=== PATIENT | male | born 1985 | race African-American/Black ===

== ENCOUNTER 2018-09-02 08:51 | Emergency (ER) | payer SELFPAY ==
[2018-09-02 09:57] LABS: Absolute Lymphocytes (CBC) 0.9 K/uL (0.7-4.9); Absolute Monocytes 0.3 K/uL (0.1-1.3); Absolute Neutrophil 3.9 K/uL (1.8-8.0); Basophils % 0.5 % (0-1.3); Eosinophils % 0.7 % (0-4.4); Hematocrit 44.3 % (39.6-49.0); Lymphocytes % 18.2 % (15.3-44.8); MPV 8.7 fL (7.6-11.3); Monocytes % 5.9 % (3.3-12.3)
[2018-09-02] MEDS ORDERED: NA CHLORIDE 0.9% 1,000 ML ONE ×2 (09:58→12:13)
[2018-09-02 10:13] LABS: Albumin 4.3 g/dL (3.4-5.0); Bilirubin Direct 0.1 mg/dL (0-0.2); Bilirubin Total 0.4 mg/dL (0.2-1.0); Potassium 4.1 mmol/L (3.5-5.1)
[2018-09-02 11:41] LABS: Urine Bacteria <20 /HPF (NONE SEEN); Urine Culture Reflex Order NOT NEEDED; Urine Mucus 1+ /HPF (NONE SEEN); Urine RBC >50 /HPF (NONE SEEN)
[2018-09-02 11:42] LABS: Urine Blood 3+ (NEG); Urine Glucose NEGATIVE (NEG); Urine Protein 2+ (NEG)
--- NOTE | 2018-09-02 12:36 | RAD REPORT ---
EXAM DESCRIPTION: US - Renal Ultrasound-Complete - 09/02/2018 12:25 pm CLINICAL HISTORY: hematuria COMPARISON: No comparisons FINDINGS: Both kidneys are normal in size, shape and echotexture. The right kidney measures 10.2 x 5.3 x 5.2 cm. No hydronephrosis, focal mass or perinephric fluid. The left kidney measures 9.5 x 5.4 x 3.9 cm. No hydronephrosis, focal mass or perinephric fluid. The urinary bladder is incompletely distended without gross abnormality seen. IMPRESSION: Unremarkable renal sonogram.
--- NOTE | 2018-09-02 12:44 | RAD REPORT ---
EXAM DESCRIPTION: RAD - Abdomen 1 View (KUB) - 09/02/2018 12:15 pm CLINICAL HISTORY: Abdomen pain. FINDINGS: The bowel gas pattern is unremarkable. A 4 millimeter calcification within the left pelvis probably represents a distal left ureteral calcul us. Unenhanced CT scan would be helpful for further evaluation
--- NOTE | 2018-09-02 12:55 | ER ---
Nurse's Notes [facility] Name: Richard Calles Age: 33 yrs Sex: Male : 1985 Arrival Date: 09/02/2018 Time: 08:53 Bed 20 Private MD: Diagnosis: Calculus of ureter-Left Presentation: 09/02 09:00 Presenting complaint: Patient states: pt reports having left sided flank pain, blood in sg urination, reports hx of kidney stones, but never had urinated blood before. Transition of care: patient was not received from another setting of care. Onset of symptoms was September 02, 2018. Risk Assessment: Do you want to hurt yourself or someone else? Patient reports no desire to harm self or others. Initial Sepsis Screen: Does the patient meet any 2 criteria? No. Patient's initial sepsis screen is negative. Does the patient have a suspected source of infection? No. Patient's initial sepsis screen is negative. Care prior to arrival: None. 09:00 Method Of Arrival: Ambulatory sg 09:00 Acuity: LIVE 3 sg Historical: - Allergies: 09:02 No Known Allergies; sg - PMHx: 09:02 Kidney stones; sg - PSHx: 09:02 Appendectomy; wrist; sg - Immunization history:: Adult Immunizations up to date. - Social history:: Smoking status: Patient/guardian denies using tobacco. - Ebola Screening: : Patient negative for fever greater than or equal to 101.5 degrees Fahrenheit, and additional compatible Ebola Virus Disease symptoms Patient denies exposure to infectious person Patient denies travel to an Ebola-affected area in the 21 days before illness onset No symptoms or risks identified at this time. Screenin:09 Abuse screen: Denies threats or abuse. Nutritional screening: No deficits noted. tw2 Tuberculosis screening: No symptoms or risk factors identified. Fall Risk None identified. Assessment: 09:27 Reassessment: provider at bedside at this time. tw2 09:52 General: Appears in no apparent distress. Behavior is calm, cooperative, appropriate tw2 for age. Pain: Denies pain. Pain:. Neuro: Level of Consciousness is awake, alert, obeys commands. Cardiovascular: Heart tones S1 S2 Patient's skin is warm and dry. Respiratory: Airway is patent Respiratory effort is even, unlabored, Respiratory pattern is regular, symmetrical, Breath sounds are clear bilaterally. GI: No signs and/or symptoms were reported involving the gastrointestinal system. Abdomen is flat, Bowel sounds present X 4 quads. Abd is soft X 4 quads. : Reports blood in urine. : No signs and/or symptoms were reported regarding the genitourinary system. EENT: No signs and/or symptoms were reported regarding the EENT system. Derm: No signs and/or symptoms reported regarding the dermatologic system. Musculoskeletal: Range of motion:. 10:01 Reassessment: Patient appears in no apparent distress at this time. No changes from tw2 previously documented assessment. Patient and/or family updated on plan of care and expected duration. Pain level reassessed. Patient is alert, oriented x 3, equal unlabored respirations, skin warm/dry/pink. 10:44 Reassessment: Patient appears in no apparent distress at this time. No changes from tw2 previously documented assessment. Patient and/or family updated on plan of care and expected duration. Pain level reassessed. Patient is alert, oriented x 3, equal unlabored respirations, skin warm/dry/pink. 11:58 Reassessment: Patient appears in no apparent distress at this time. No changes from tw2 previously documented assessment. Patient and/or family updated on plan of care and expected duration. Pain level reassessed. Patient is alert, oriented x 3, equal unlabored respirations, skin warm/dry/pink. 13:06 Reassessment: Patient appears in no apparent distress at this time. No changes from tw2 previously documented assessment. Patient and/or family updated on plan of care and expected duration. Pain level reassessed. Patient is alert, oriented x 3, equal unlabored respirations, skin warm/dry/pink. Vital Signs: 09:00 Temp 98.4; sg 09:02 BP 113 / 86; Pulse 81; Resp 18; Temp 98.4; Pulse Ox 100% on R/A; Weight 77.11 kg; Pain sg 7/10; 10:01 BP 120 / 74; Pulse 76; Resp 17; Pulse Ox 100% on R/A; tw2 10:44 BP 114 / 80; Pulse 65; Resp 17; Pulse Ox 100% on R/A; tw2 11:57 BP 118 / 77; Pulse 63; Resp 17; Pulse Ox 100% on R/A; tw2 13:06 BP 129 / 84; Pulse 66; Resp 17; Pulse Ox 97% on R/A; tw2 ED Course: 08:53 Patient arrived in ED. as 09:01 Triage completed. sg 09:02 Arm band placed on. sg 09:09 Scott Medrano PA is PHCP. cp 09:09 Aravind Garcia MD is Attending Physician. cp 09:09 Nayely Comer, YOON is Primary Nurse. tw2 09:09 Bed in low position. Call light in reach. Pulse ox on. NIBP on. tw2 09:45 Inserted saline lock: 22 gauge in left antecubital area, using aseptic technique. Blood tw2 collected. 11:26 Urine Microscopic Only Sent. tw2 12:16 X-ray completed. Portable x-ray completed in exam room. Patient tolerated procedure mh1 well. 12:16 XRAY Abdomen 1 View (KUB) In Process Unspecified. EDMS 12:23 US Rp Exam Complete In Process Unspecified. EDMS 12:53 Bobby Beck MD is Referral Physician. cp 13:06 No provider procedures requiring assistance completed. IV discontinued, intact, tw2 bleeding controlled, No redness/swelling at site. Pressure dressing applied. Administered Medications: 09:52 Drug: NS 0.9% 1000 ml Route: IV; Rate: 1000 ml; Site: left antecubital; tw2 11:10 Follow up: Response: No adverse reaction; IV Status: Completed infusion; IV Intake: tw2 1000ml 12:04 Drug: NS 0.9% 1000 ml Route: IV; Rate: 1000 ml; Site: left antecubital; tw2 13:05 Follow up: Response: No adverse reaction; IV Status: Order to discontinue infusion; IV tw2 Intake: 200ml 13:00 Drug: Flomax 0.4 mg Route: PO; tw2 13:05 Follow up: Response: No adverse reaction tw2 Intake: 11:10 IV: 1000ml; Total: 1000ml. tw2 13:05 IV: 200ml; Total: 1200ml. tw2 Outcome: 12:54 Discharge ordered by . cp 13:07 Discharged to home ambulatory. tw2 13:07 Condition: stable 13:07 Discharge instructions given to patient, Instructed on discharge instructions, follow up and referral plans. no drinking with medication, no driving heavy equipment, medication usage, Demonstrated understanding of instructions, follow-up care, medications, Prescriptions given X 4. 13:08 Patient left the ED. tw2 Signatures: Dispatcher [employer] EDMS Samuel Gan, RN RN Rakel Gilmore [facility] Shruthi Jose Corey, PA PA cp Wise, Tara RN RN tw2
--- NOTE | 2018-09-02 12:56 | EDPHYS ---
Physician Documentation [facility] Name: Richard Calles Age: 33 yrs Sex: Male : 1985 Arrival Date: 09/02/2018 Time: 08:53 Bed 20 Private MD: ED Physician Aravind Garcia HPI: 09/02 09:45 This 33 yrs old Black Male presents to ER via Ambulatory with complaints of Possible cp Kidney Stone. 09:45 The patient presents with urinary symptoms, hematuria, penile pain. cp 09:45 Onset: The symptoms/episode began/occurred this morning. Associated signs and symptoms: cp Pertinent negatives: abdominal pain, constipation, diarrhea, fever, vomiting. 09:45 Patient reports having left flank pain that has resolved after taking diclofenac this cp morning. Patient concerned about kidney stone after noticing blood in urine. Patient reports now having pain in penis. Historical: - Allergies: 09:02 No Known Allergies; sg - PMHx: 09:02 Kidney stones; sg - PSHx: 09:02 Appendectomy; wrist; sg - Immunization history:: Adult Immunizations up to date. - Social history:: Smoking status: Patient/guardian denies using tobacco. - Ebola Screening: : Patient negative for fever greater than or equal to 101.5 degrees Fahrenheit, and additional compatible Ebola Virus Disease symptoms Patient denies exposure to infectious person Patient denies travel to an Ebola-affected area in the 21 days before illness onset No symptoms or risks identified at this time. ROS: 10:00 Constitutional: Negative for body aches, chills, fever, poor PO intake. cp 10:00 Eyes: Negative for injury, pain, redness, and discharge. cp 10:00 ENT: Negative for drainage from ear(s), ear pain, sore throat, difficulty swallowing, difficulty handling secretions. 10:00 Cardiovascular: Negative for chest pain, palpitations. 10:00 Respiratory: Negative for cough, shortness of breath, wheezing. 10:00 Abdomen/GI: Negative for abdominal pain, nausea, vomiting, and diarrhea. 10:00 Back: Negative for pain at rest, pain with movement. 10:00 : Positive for hematuria, penile pain, Negative for burning with urination, penile discharge, testicular pain 10:00 Skin: Negative for cellulitis, rash. 10:00 Neuro: Negative for altered mental status, headache, weakness. 10:00 All other systems are negative. Exam: 10:05 Constitutional: The patient appears in no acute distress, alert, awake, comfortable, cp non-toxic, well developed, well nourished. 10:05 Head/Face: Normocephalic, atraumatic. cp 10:05 Eyes: Periorbital structures: appear normal, Conjunctiva: normal, no exudate, no injection, Sclera: no appreciated abnormality, Lids and lashes: appear normal, bilaterally. 10:05 ENT: External ear(s): are unremarkable, Nose: is normal, Mouth: Lips: moist, Oral mucosa: pink and intact, moist, Posterior pharynx: is normal, airway is patent, no erythema, no exudate. 10:05 Chest/axilla: Inspection: normal, Palpation: is normal, no crepitus, no tenderness. 10:05 Cardiovascular: Rate: normal, Rhythm: regular. 10:05 Respiratory: the patient does not display signs of respiratory distress, Respirations: normal, no use of accessory muscles, no retractions, no splinting, no tachypnea, Breath sounds: are clear throughout, no decreased breath sounds, no stridor, no wheezing. 10:05 Abdomen/GI: Inspection: abdomen appears normal, Bowel sounds: active, all quadrants, Palpation: abdomen is soft and non-tender, in all quadrants. 10:05 Back: pain, is absent, ROM is normal. 10:05 Skin: cellulitis, is not appreciated, no rash present. Vital Signs: 09:00 Temp 98.4; sg 09:02 BP 113 / 86; Pulse 81; Resp 18; Temp 98.4; Pulse Ox 100% on R/A; Weight 77.11 kg; Pain sg 7/10; 10:01 BP 120 / 74; Pulse 76; Resp 17; Pulse Ox 100% on R/A; tw2 10:44 BP 114 / 80; Pulse 65; Resp 17; Pulse Ox 100% on R/A; tw2 11:57 BP 118 / 77; Pulse 63; Resp 17; Pulse Ox 100% on R/A; tw2 13:06 BP 129 / 84; Pulse 66; Resp 17; Pulse Ox 97% on R/A; tw2 MDM: 09:09 Patient medically screened. cp 12:52 Data reviewed: vital signs, nurses notes, lab test result(s), radiologic studies, and cp as a result, I will discharge patient. 12:52 Counseling: I had a detailed discussion with the patient and/or guardian regarding: the cp historical points, exam findings, and any diagnostic results supporting the discharge/admit diagnosis, lab results, radiology results, to return to the emergency department if symptoms worsen or persist or if there are any questions or concerns that arise at home. 09/02 09:35 Order name: Basic Metabolic Panel; Complete Time: 10:31 cp 09/02 09:35 Order name: CBC with Diff; Complete Time: 10:31 cp 09/02 09:35 Order name: Creatinine for Radiology; Complete Time: 10:31 cp 09/02 09:35 Order name: Hepatic Function; Complete Time: 10: cp 09/02 09:35 Order name: Lipase; Complete Time: 10:31 cp 09/02 09:35 Order name: Urine Microscopic Only; Complete Time: 11:43 cp 09/02 11:43 Interpretation: Normal except: URBC >50. cp 09/02 09:35 Order name: IV Saline Lock; Complete Time: 09:52 cp 09/02 09:35 Order name: Labs collected and sent; Complete Time: 09:52 cp 09/02 11:29 Order name: Urine Dipstick--Ancillary (enter results); Complete Time: 11:43 bd 09/02 11:43 Interpretation: Normal except: UKET 1+; UBLD 3+; UPROT 2+. cp 09/02 11:31 Order name: US Rp Exam Complete; Complete Time: 12:47 cp 09/02 11:31 Order name: XRAY Abdomen 1 View (KUB); Complete Time: 12:47 cp 09/02 09:35 Order name: Urine Strainer; Complete Time: 09:54 cp 09/02 11:12 Order name: Urine Dipstick-Ancillary (obtain specimen); Complete Time: 11:26 cp Administered Medications: 09:52 Drug: NS 0.9% 1000 ml Route: IV; Rate: 1000 ml; Site: left antecubital; tw2 11:10 Follow up: Response: No adverse reaction; IV Status: Completed infusion; IV Intake: tw2 1000ml 12:04 Drug: NS 0.9% 1000 ml Route: IV; Rate: 1000 ml; Site: left antecubital; tw2 13:05 Follow up: Response: No adverse reaction; IV Status: Order to discontinue infusion; IV tw2 Intake: 200ml 13:00 Drug: Flomax 0.4 mg Route: PO; tw2 13:05 Follow up: Response: No adverse reaction tw2 Disposition: 09/03 12:37 Co-signature as Attending Physician, Aravind Garcia MD. rn Disposition: 09/02/18 12:54 Discharged to Home. Impression: Calculus of ureter - Left. - Condition is Stable. - Discharge Instructions: Kidney Stones, Renal Colic. - Prescriptions for Tylenol- Codeine #3 300-30 mg Oral Tablet - take 2 tablets by ORAL route every 6 hours As needed; 15 tablet. Zofran 4 mg Oral Tablet - take 1 tablet by ORAL route every 12 hours As needed; 20 tablet. Flomax 0.4 mg Oral Capsule, Sust. Release 24 hr - take 1 capsule by ORAL route once daily for 5 days 1/2 hour following the same meal each day; 5 capsule. Diclofenac Sodium 75 mg Oral Tablet, Delayed Release (E.C.) - take 1 tablet by ORAL route 2 times per day As needed; 20 tablet. - Work release form, Medication Reconciliation Form, Thank You Letter, Antibiotic Education, Prescription Opioid Use form. - Follow up: Bobby Beck MD; When: 2 - 3 days; Reason: pain continues. - Problem is new. - Symptoms have improved. Signatures: Dispatcher [employer] EDSamuel Quezada RN RN sg Nieto, Roman, MD MD rn Page, Corey, PA PA cp Wise, Tara, RN RN tw2 Corrections: (The following items were deleted from the chart) 09/02 13:08 12:54 09/02/2018 12:54 Discharged to Home. Impression: Calculus of ureter - Left. tw2 Condition is Stable. Forms are Medication Reconciliation Form, Thank You Letter, Antibiotic Education, Prescription Opioid Use. Follow up: Bobby Beck; When: 2 - 3 days; Reason: pain continues. Problem is new. Symptoms have improved. cp
[2018-09-02 13:11] VITALS: TEMP 98.4
[2018-09-02] MEDS ORDERED: TAMSULOSIN 0.4 MG SR CAP ONE (13:11)
[2018-09-02 13:18] VITALS: BP 129/84; O2SAT 97
== END 2018-09-02 13:08 | disposition home or self-care (01) ==
LOC: ER 08:51
DX: N20.1 Calculus of ureter (principal)
CPT/HCPCS: 36415; 74018; 76770; 80048; 80076; 81003; 81015; 83690; 85025; 96360; 96361; 99284; J7030

== ENCOUNTER 2024-05-07 03:01 | Emergency (ER) | payer BC ==
[2024-05-07] MEDS ORDERED: ONDANSETRON 4 MG/2 ML VIAL ONE (04:39)
[2024-05-07] MEDS ORDERED: NA CHLORIDE 0.9% 1,000 ML ONE (04:39)
[2024-05-07] MEDS ORDERED: FAMOTIDINE 20 MG/2 ML VIAL IV ONE (04:39)
[2024-05-07] MEDS ORDERED: MORPHINE 4 MG/ML SYR ONE (04:39)
[2024-05-07 04:45] LABS: Absolute Eosinophils 0.1 K/uL (0-0.5); Absolute Lymphocytes (CBC) 1.3 K/uL (0.7-4.9); Absolute Monocytes 0.5 K/uL (0.1-1.3); Basophils % 0.3 % (0-1.3); Eosinophils % 0.9 % (0-4.4); Hematocrit 40.4 % (39.6-49.0); Hemoglobin 13.6 g/dL (13.6-17.9); Lymphocytes % 18.4 % (15.3-44.8); MCH 29.2 pg (27.0-35.0); MCHC 33.7 g/dL (32.0-36.0); MCV 86.8 fL (80-100); MPV 8.1 fL (7.6-11.3); Monocytes % 6.7 % (3.3-12.3); Neutrophils % 73.7 % (41.7-73.7); Nucleated Red Blood Cells % 0.2 % (0-0); Platelets 289 thou/uL (152-406); RBC Red Blood Cell Count 4.65 M/uL (4.33-5.43); Red Cell Distribution Width 13.7 % (12.1-15.2)
[2024-05-07 05:04] LABS: Albumin 2.1 g/dL (3.4-5.0); Albumin/Globulin Ratio 0.4 (1.1-1.8); Anion Gap 9.4 mEq/L (5.0-15.0); Bilirubin Total 0.5 mg/dL (0.2-1.0); Globulin 5.4 g/dL (2.3-3.5); Potassium 3.4 mEq/L (3.5-5.1); Protein, Total 7.5 g/dL (6.4-8.2)
--- NOTE | 2024-05-07 06:39 | RAD REPORT ---
EXAMINATION: CT ABDOMEN PELVIS WITH IV CONTRAST INDICATION: Male, 39 years old, ABD PAIN COMPARISON(S): None. TECHNIQUE: CT acquisition of the abdomen and pelvis following the administration of IV contrast. Larissa nal and sagittal reformatted images provided. This exam was performed according to departmental dose-optimization program which includes automated exposure control, adjustment of the mA and/or kV a ccording to patient size, and/or use of iterative reconstruction technique. FINDINGS: SUPPORT DEVICES: None. LOWER CHEST: Unremarkable. ABDOMEN AND PELVIS: Liver: Incompletely characterized 1.1 cm subcapsular lesion in the left lobe, and punctate hypodensit y in the dome. Gallbladder and bile ducts: Unremarkable. Pancreas: Normal. Spleen: Normal. Adrenal glands: Normal. Kidneys and ureters: Normal. Bladder: Nondistended without evident abnormality. Reproductive organs: Bilateral extratesticular cystic lesions. GI tract: Normal caliber without wall thickening. No evidence of appendicitis. Vessels: Unremarkable. Lymph nodes: No evident adenopathy. Peritoneum: No evidence of ascites, fluid collection, or free air. Abdominal wall: No significant hernia. MUSCULOSKELETAL: No acute osseous abnormality. IMPRESSION: 1. No acute abdominopelvic finding. 2. Extratesticular cystic lesions of the scrotum incompletely characterized by CT, correlate with s ymptoms and consider nonemergent scrotal ultrasound. 3. Indeterminate hepatic hypodensities are low suspicion and likely incidental unless patient has s pecific risk factors for malignancy. Attention on subsequent exams. Electronically signed by: Samuel Plaza MD 05/07/2024 06:29 AM CDT RP Due to temporary technical issues with the PACS/Ambric reporting system, reports are being frank d by the in-house radiologist without review as a courtesy to ensure prompt reporting the interpreting radiologist is fully responsible for the content of the report. Transcribed Date/Time: 05/07/2024 6:39 AM
--- NOTE | 2024-05-07 06:41 | EDPHYS ---
Physician Documentation [facility] Name: Richard Calles Age: 39 yrs Sex: Male : 1985 Arrival Date: 05/07/2024 Time: 03:01 Bed 8 Private MD: ED Physician Sky Farmer HPI: 05/07 05:09 This 39 yrs old Black Male presents to ER via Ambulatory with complaints of Abdominal rt Pain. 05:09 Patient presents to the ED with epigastric pain that woke him up from sleep. This rt occurred about 2 hours prior to arrival. He associated nausea without vomiting. Denies other acute complaints at this time, symptoms are moderate in severity, no other aggravating or alleviating factors.. Historical: - Allergies: 04:52 No Known Drug Allergies; br2 - Immunization history:: Adult Immunizations not up to date. - Infectious Disease History:: Denies. - Social history:: Smoking status: Patient denies any tobacco usage or history of. Patient uses alcohol, occasionally. - Family history:: not pertinent. ROS: 05:09 Constitutional: Negative for fever, chills, and weight loss, Cardiovascular: Negative rt for chest pain, palpitations, and edema, Respiratory: Negative for shortness of breath, cough, wheezing, and pleuritic chest pain, MS/Extremity: Negative for injury and deformity, Skin: Negative for injury, rash, and discoloration, Neuro: Negative for headache, weakness, numbness, tingling, and seizure, 05:09 Abdomen/GI: Positive for abdominal pain, nausea, Exam: 05:09 Constitutional: This is a well developed, well nourished patient who is awake, alert, rt and in no acute distress. Head/Face: Normocephalic, atraumatic. Chest/axilla: Normal chest wall appearance and motion. Nontender with no deformity. No lesions are appreciated. Cardiovascular: Regular rate and rhythm with a normal S1 and S2. No gallops, murmurs, or rubs. Normal PMI, no JVD. No pulse deficits. Respiratory: Lungs have equal breath sounds bilaterally, clear to auscultation and percussion. No rales, rhonchi or wheezes noted. No increased work of breathing, no retractions or nasal flaring. Skin: Warm, dry with normal turgor. Normal color with no rashes, no lesions, and no evidence of cellulitis. MS/ Extremity: Pulses equal, no cyanosis. Neurovascular intact. Full, normal range of motion. Neuro: Awake and alert, GCS 15, oriented to person, place, time, and situation. Cranial nerves II-XII grossly intact. Motor strength 5/5 in all extremities. Sensory grossly intact. Cerebellar exam normal. Normal gait. 05:09 Abdomen/GI: Tenderness to the epigastrium without rebound, guarding, distention, Vital Signs: 04:30 BP 125 / 93; Pulse 71; Resp 18; Temp 98.2(TE); Pulse Ox 99% on R/A; Weight 85.73 kg; br2 Height 5 ft. 10 in. ; Pain 8/10; 05:33 BP 126 / 87; Pulse 69; Resp 18 S; Pulse Ox 100% on R/A; Pain 2/10; br2 06:06 BP 120 / 89; Pulse 60; Resp 16 S; Pulse Ox 99% on R/A; Pain 2/10; br2 04:30 Body Mass Index 27.12 (85.73 kg, 177.8 cm) br2 04:30 Pain Scale: Adult br2 05:33 Pain Scale: Adult br2 06:06 Pain Scale: Adult br2 MDM: 04:08 Patient medically screened. rt 06:50 Differential Diagnosis Gastritis, ulcer, pancreatitis, diverticulitis. Data reviewed: rt vital signs, nurses notes, lab test result(s), radiologic studies. I considered the following discharge prescriptions or medication management in the emergency department Medications were administered in the Emergency Department. See MAR. Independent interpretation of the following test(s) in the Emergency Department CT Scan: My interpretation is No bowel obstruction seen on interpretation of CT scan images. Counseling: I had a detailed discussion with the patient and/or guardian regarding the historical points, exam findings, and any diagnostic results supporting the discharge/admit diagnosis, lab results, radiology results, the need for outpatient follow up, to return to the emergency department if symptoms worsen or persist or if there are any questions or concerns that arise at home. 05/07 04:15 Order name: CBC with Diff; Complete Time: 05:07 rt 05/07 04:15 Order name: CMP; Complete Time: 05: rt 05/07 04:15 Order name: Lipase; Complete Time: 05: rt 05/07 04:15 Order name: CT Abd/Pelvis - IV Contrast Only rt 05/07 04:15 Order name: IV Saline Lock; Complete Time: 04:46 rt 05/07 04:15 Order name: Labs collected and sent; Complete Time: 04:46 rt Administered Medications: 04:45 Drug: NS 0.9% IV 1000 ml IV at 1 bolus Per protocol; 1000 mL bolus Route: IV; Rate: 1 br2 bolus; Site: left forearm; 06:57 Follow up: IV Status: Completed infusion; IV Intake: 1000ml br2 04:45 Drug: Famotidine IVP 20 mg IVP once; dilute with 10 mL 0.9% NaCl; give over 2 minutes br2 Route: IVP; Site: left forearm; 05:48 Follow up: Response: No adverse reaction br2 04:46 Drug: Ondansetron IVP 4 mg IVP once; over 2 minutes Route: IVP; Site: left forearm; br2 05:48 Follow up: Response: No adverse reaction br2 04:46 Drug: morphine IVP or IV 4 mg IVP once over 4 mins Route: IVP; Infused Over: 4 mins; br2 Site: left forearm; 05:48 Follow up: Response: Pain is decreased br2 06:55 Drug: GI Cocktail without - (Maalox PO 30 ml, Lidocaine Mucous Membrane 2 % 15 br2 ml) PO once Route: PO; 06:56 Follow up: Response: Medication administered at discharge. br2 Disposition Summary: 05/07/24 06:41 Discharge Ordered Notes: Location: Home rt Problem: new rt Symptoms: have improved rt Condition: Stable rt Diagnosis - Epigastric pain rt Followup: rt - With: Erik Brown MD - When: 2 - 3 days - Reason: Discharge Instructions: - Discharge Summary Sheet rt - Abdominal Pain, Adult rt Forms: - Medication Reconciliation Form rt - Antibiotic Education rt - Prescription Opioid Use rt - Patient Portal Instructions rt - Leadership Thank You Letter rt Prescriptions: - Carafate 100 mg/mL Oral suspension - take 10 milliliter ORAL route every 6 to 8 hours as needed; 150 milliliter; rt Refills: 0, Product Selection Permitted - Protonix 40 mg Oral Tablet - take 1 tablet ORAL route once daily; 30 tablet; Refills: 0, Product Selection rt Permitted Signatures: Dispatcher [employer] Sky Clinton MD MD rt Lynne Garcia, RN RN br2
--- NOTE | 2024-05-07 06:41 | ER ---
Nurse's Notes [facility] Name: Richard Calles Age: 39 yrs Sex: Male : 1985 Arrival Date: 05/07/2024 Time: 03:01 Bed 8 Private MD: Diagnosis: Epigastric pain Presentation: 05/07 04:30 Chief complaint: Patient states: SUDDEN ONSET OF EPIGASTRIC PAIN, WOKE HIM UP OUT OF br2 SLEEP, SHARP CONSTANT, NAUSEA. Coronavirus screen: Client denies travel out of the [place] in the last 14 days. Ebola Screen: Patient negative for fever greater than or equal to 101.5 degrees Fahrenheit, and additional compatible Ebola Virus Disease symptoms Patient denies exposure to infectious person. Patient denies travel to an Ebola-affected area in the 21 days before illness onset. Initial Sepsis Screen: Does the patient meet any 2 criteria? No. Patient's initial sepsis screen is negative. Does the patient have a suspected source of infection? No. Patient's initial sepsis screen is negative. Risk Assessment: Do you want to hurt yourself or someone else? Patient reports no desire to harm self or others. Onset of symptoms was May 07, 2024 at 02:30. 04:30 Method Of Arrival: Ambulatory br2 04:30 Acuity: LIVE 3 br2 Triage Assessment: 04:52 General: Appears in no apparent distress. comfortable. General: Behavior is calm, br2 cooperative. Pain: Complains of pain in xiphoid area Pain does not radiate. Pain currently is 8 out of 10 on a pain scale. Quality of pain is described as sharp, Pain began suddenly, 3 hours ago. EENT: No signs and/or symptoms were reported regarding the EENT system. Neuro: Walker Agitation-Sedation Scale (RASS): 0 - Alert and Calm. Cardiovascular: Denies shortness of breath, Capillary refill < 3 seconds. Respiratory: Airway is patent. GI: Abdomen is flat, Reports epigastric pain. Historical: - Allergies: 04:52 No Known Drug Allergies; br2 - Immunization history:: Adult Immunizations not up to date. - Infectious Disease History:: Denies. - Social history:: Smoking status: Patient denies any tobacco usage or history of. Patient uses alcohol, occasionally. - Family history:: not pertinent. Screenin:30 [facility] ED Fall Risk Assessment (Adult) History of falling in the last 3 months, br2 including since admission No falls in past 3 months (0 pts) Confusion or Disorientation No (0 pts) Intoxicated or Sedated No (0 pts) Impaired Gait No (0 pts) Mobility Assist Device Used No (0 pt) Altered Elimination No (0 pt) Score/Fall Risk Level 0 - 2 = Low Risk Oriented to surroundings. Abuse screen: Denies threats or abuse. Denies injuries from another. Nutritional screening: No deficits noted. Tuberculosis screening: No symptoms or risk factors identified. Assessment: 04:30 GI: Bowel sounds present X 4 quads. Abd is soft X 4 quads. br2 04:30 Reassessment: SEE TRIAGE ASSESSMENT. br2 05:34 Reassessment: Patient and/or family updated on plan of care and expected duration. Pain br2 level reassessed. Patient is alert, oriented x 3, equal unlabored respirations, skin warm/dry/pink. Patient states feeling better. Patient states symptoms have improved. Vital Signs: 04:30 BP 125 / 93; Pulse 71; Resp 18; Temp 98.2(TE); Pulse Ox 99% on R/A; Weight 85.73 kg; br2 Height 5 ft. 10 in. ; Pain 8/10; 05:33 BP 126 / 87; Pulse 69; Resp 18 S; Pulse Ox 100% on R/A; Pain 2/10; br2 06:06 BP 120 / 89; Pulse 60; Resp 16 S; Pulse Ox 99% on R/A; Pain 2/10; br2 04:30 Body Mass Index 27.12 (85.73 kg, 177.8 cm) br2 04:30 Pain Scale: Adult br2 05:33 Pain Scale: Adult br2 06:06 Pain Scale: Adult br2 ED Course: 03:03 Patient arrived in ED. jj6 03:12 Sky Farmer MD is Attending Physician. rt 04:30 Inserted saline lock: 20 gauge in left forearm, using aseptic technique. Blood br2 collected. Flushed with 10 mL NS. 04:30 Patient has correct armband on for positive identification. Bed in low position. Call br2 light in reach. Side rails up X 1. Provided Education on: PLAN OF CARE. 04:46 CBC with Diff Sent. br2 04:46 CMP Sent. br2 04:46 Lipase Sent. br2 04:52 Triage completed. br2 04:52 Arm band placed on right wrist. br2 04:56 Lynne Garcia, YOON is Primary Nurse. br2 05:32 CT Abd/Pelvis - IV Contrast Only In Process Unspecified. EDMS 06:41 Erik Brown MD is Referral Physician. rt 06:56 IV discontinued, intact, bleeding controlled, No redness/swelling at site. Pressure br2 dressing applied. 06:56 No provider procedures requiring assistance completed. br2 Administered Medications: 04:45 Drug: NS 0.9% IV 1000 ml IV at 1 bolus Per protocol; 1000 mL bolus Route: IV; Rate: 1 br2 bolus; Site: left forearm; 06:57 Follow up: IV Status: Completed infusion; IV Intake: 1000ml br2 04:45 Drug: Famotidine IVP 20 mg IVP once; dilute with 10 mL 0.9% NaCl; give over 2 minutes br2 Route: IVP; Site: left forearm; 05:48 Follow up: Response: No adverse reaction br2 04:46 Drug: Ondansetron IVP 4 mg IVP once; over 2 minutes Route: IVP; Site: left forearm; br2 05:48 Follow up: Response: No adverse reaction br2 04:46 Drug: morphine IVP or IV 4 mg IVP once over 4 mins Route: IVP; Infused Over: 4 mins; br2 Site: left forearm; 05:48 Follow up: Response: Pain is decreased br2 06:55 Drug: GI Cocktail without - (Maalox PO 30 ml, Lidocaine Mucous Membrane 2 % 15 br2 ml) PO once Route: PO; 06:56 Follow up: Response: Medication administered at discharge. br2 Medication: 04:30 VIS not applicable for this client. br2 Intake: 06:57 IV: 1000ml; Total: 1000ml. br2 Outcome: 06:41 Discharge ordered by . rt 06:56 Discharged to home ambulatory, br2 06:56 Condition: improved 06:56 Discharge instructions given to patient, Instructed on discharge instructions, follow up and referral plans. Demonstrated understanding of instructions, follow-up care, medications, Prescriptions given X 2, 07:01 Patient left the ED. br2 Signatures: Dispatcher [employer] EDMS Diya Peace jj6 Sky Farmer MD MD rt Lynne Garcia, RN RN br2
[2024-05-07] MEDS ORDERED: LIDOCAINE VISCOUS 2% 10ML ORAL SOLN ONE (06:50)
[2024-05-07] MEDS ORDERED: MAGNES/ALUMIN/SIMET 30ML UCUP ONE (06:50)
[2024-05-07 07:55] VITALS: TEMP 98.2; O2SAT 99
[2024-05-07 07:57] VITALS: BP 120/89
== END 2024-05-07 07:01 | disposition home or self-care (01) ==
LOC: ER 03:01
DX: R10.13 Epigastric pain (principal)
CPT/HCPCS: 85025; 36415; 83690; 80053; 74177; Q9967; J2405; J7030

== ENCOUNTER 2024-06-05 19:39 | Observation (INO) | payer BC ==
[2024-06-05] MEDS ORDERED: MORPHINE 4 MG/ML SYR ONE (20:27)
[2024-06-05] MEDS ORDERED: KETOROLAC 30 MG/ML INJ ONE (20:27)
[2024-06-05] MEDS ORDERED: ONDANSETRON 4 MG/2 ML VIAL ONE (20:27)
[2024-06-05 20:53] LABS: Absolute Eosinophils 0.1 K/uL (0-0.5); Absolute Monocytes 0.4 K/uL (0.1-1.3); Basophils % 0.4 % (0-1.3); Eosinophils % 1.6 % (0-4.4); Hematocrit 41.5 % (39.6-49.0); Hemoglobin 13.5 g/dL (13.6-17.9); Lymphocytes % 35.6 % (15.3-44.8); MCH 28.7 pg (27.0-35.0); MCHC 32.5 g/dL (32.0-36.0); MCV 88.6 fL (80-100); MPV 8.8 fL (7.6-11.3); Neutrophils % 54.4 % (41.7-73.7); Nucleated Red Blood Cells % 0.1 % (0-0); Platelets 283 thou/uL (152-406); RBC Red Blood Cell Count 4.69 M/uL (4.33-5.43); Red Cell Distribution Width 13.4 % (12.1-15.2)
--- NOTE | 2024-06-05 21:20 | RAD REPORT ---
EXAMINATION: US Abdomen Exam Limited CLINICAL HISTORY: [facility] N ruq abd pain Bed Name: 17 COMPARISON: The TECHNIQUE: Limited upper abdominal grayscale and color flow sonographic images. FINDINGS: Gallbladder: Normal distention. Small echogenic calculi near the fundus, largest measuring 12 mm. No pericholecystic fluid. Reportedly negative sonographic Mckeon sign. Bile ducts: No intrahepatic or extrahepatic biliary dilatation. Common bile duct measures 2 mm. Liver: Visualized portions of the liver demonstrate normal echogenicity with no suspicious findings. Fluid: No ascites. IMPRESSION: Cholelithiasis. No other sonographic abnormalities noted.
[2024-06-05 21:55] LABS: Albumin 3.7 g/dL (3.4-5.0); Anion Gap 7.6 mEq/L (5.0-15.0); Potassium 3.6 mEq/L (3.5-5.1)
[2024-06-05 21:58] LABS: Bilirubin Total 0.3 mg/dL (0.2-1.0); Globulin 3.7 g/dL (2.3-3.5); Protein, Total 7.4 g/dL (6.4-8.2)
--- NOTE | 2024-06-05 22:00 | ER ---
Nurse's Notes [facility] Name: Richard Calles Age: 39 yrs Sex: Male : 1985 Arrival Date: 06/05/2024 Time: 19:39 Bed 17 Private MD: Diagnosis: Other cholelithiasis without obstruction Presentation: 06/05 19:54 Chief complaint: Patient states: RUQ pain, I'm supposed to have my gallbladder removed. tm6 I was here about 3 weeks ago, I was diagnosed with gastritis. My PCP said I have gallstones, I saw Dr. Jose, we are talking about getting the surgery scheduled. I called Dr. Jose about my pain and he said to go to the ER. Pain started Sunday, worsening today. Coronavirus screen: Client denies travel out of the [place] in the last 14 days. Ebola Screen: Patient negative for fever greater than or equal to 101.5 degrees Fahrenheit, and additional compatible Ebola Virus Disease symptoms Patient denies exposure to infectious person. Patient denies travel to an Ebola-affected area in the 21 days before illness onset. No symptoms or risks identified at this time. Initial Sepsis Screen: Does the patient meet any 2 criteria? No. Patient's initial sepsis screen is negative. Does the patient have a suspected source of infection? No. Patient's initial sepsis screen is negative. Risk Assessment: Do you want to hurt yourself or someone else? Patient reports no desire to harm self or others. Onset of symptoms was June 02, 2024. 19:54 Method Of Arrival: Ambulatory tm6 19:54 Acuity: LIVE 3 tm6 Triage Assessment: 19:56 General: Appears uncomfortable, Behavior is calm, cooperative. Pain: Complains of pain tm6 in right upper quadrant Pain currently is 9 out of 10 on a pain scale. Pain began 2-3 days ago. EENT: No signs and/or symptoms were reported regarding the EENT system. Neuro: Level of Consciousness is awake, alert, obeys commands, Oriented to person, place, time, situation. Cardiovascular: Patient's skin is warm and dry. Respiratory: Airway is patent Respiratory effort is even, unlabored, Respiratory pattern is regular, symmetrical. GI: Abdomen is flat, non-distended, Reports upper abdominal pain. : No signs and/or symptoms were reported regarding the genitourinary system. Derm: No signs and/or symptoms reported regarding the dermatologic system. Musculoskeletal: No signs and/or symptoms reported regarding the musculoskeletal system. Historical: - Allergies: 19:56 No Known Allergies; tm6 - PMHx: 19:56 Kidney stones; Migraine; tm6 - PSHx: 19:56 Appendectomy; right wrist; Vasectomy; tm6 - Immunization history:: Client reports receiving the 2nd dose of the Covid vaccine. - Infectious Disease History:: Denies. - Social history:: Smoking status: Patient denies any tobacco usage or history of. Patient uses alcohol, occasionally. Screenin:29 [facility] ED Fall Risk Assessment (Adult) History of falling in the last 3 months, jb4 including since admission No falls in past 3 months (0 pts) Confusion or Disorientation No (0 pts) Intoxicated or Sedated No (0 pts) Impaired Gait No (0 pts) Mobility Assist Device Used No (0 pt) Altered Elimination No (0 pt) Score/Fall Risk Level 0 - 2 = Low Risk Oriented to surroundings, Maintained a safe environment. Abuse screen: Denies threats or abuse. Nutritional screening: No deficits noted. Tuberculosis screening: No symptoms or risk factors identified. Assessment: 20:00 General: Appears in no apparent distress. uncomfortable, Behavior is calm, cooperative, jb4 appropriate for age. Pain: Complains of pain in right upper quadrant Pain does not radiate. Pain currently is 9 out of 10 on a pain scale. Neuro: Level of Consciousness is awake, alert, obeys commands, Oriented to person, place, time, situation. Cardiovascular: Patient's skin is warm and dry. Respiratory: Airway is patent Respiratory effort is even, unlabored, Respiratory pattern is regular, symmetrical. GI: Abdomen is flat, non-distended, Reports upper abdominal pain. Derm: Skin is healthy with good turgor, Skin is pink, warm \T\ dry. Musculoskeletal: Circulation, motion, and sensation intact. Range of motion: intact in all extremities. 21:00 Reassessment: Patient appears in no apparent distress at this time. Patient and/or jb4 family updated on plan of care and expected duration. Pain level reassessed. Patient is alert, oriented x 3, equal unlabored respirations, skin warm/dry/pink. 22:00 Reassessment: Patient appears in no apparent distress at this time. Patient and/or jb4 family updated on plan of care and expected duration. Pain level reassessed. Patient is alert, oriented x 3, equal unlabored respirations, skin warm/dry/pink. 23:26 Reassessment: Patient appears in no apparent distress at this time. Patient and/or jb4 family updated on plan of care and expected duration. Pain level reassessed. Patient is alert, oriented x 3, equal unlabored respirations, skin warm/dry/pink. Vital Signs: 19:53 Pulse 66; Resp 18; Temp 99(O); Pulse Ox 100% ; Weight 86.18 kg; Height 5 ft. 10 in. ; tm6 Pain 9/10; 19:54 BP 140 / 94; MAP 106 mmHg; tm6 21:00 BP 125 / 91; Pulse 68; Resp 16; Pulse Ox 97% on R/A; jb4 22:00 BP 128 / 83; Pulse 69; Resp 16; Pulse Ox 98% on R/A; jb4 23:00 BP 119 / 84; Pulse 61; Resp 16; Pulse Ox 97% on R/A; jb4 19:53 Body Mass Index 27.26 (86.18 kg, 177.8 cm) tm6 19:53 Pain Scale: Adult tm6 ED Course: 19:42 Patient arrived in ED. mr 19:56 Triage completed. tm6 19:56 Arm band placed on left wrist. tm6 20:02 Saturnino Banuelos MD is Attending Physician. ec2 20:30 Inserted saline lock: 18 gauge in left antecubital area, using aseptic technique. Blood jb4 collected. 20:45 Rancho Aldana RN is Primary Nurse. jb4 20:46 Lipase Sent. jb4 20:46 CMP Sent. jb4 20:46 CBC with Diff Sent. jb4 20:50 Abdomen Limited US In Process Unspecified. EDMS 22:00 Prince Tejada MD is Hospitalizing Provider. ec2 23:29 No provider procedures requiring assistance completed. Patient admitted, IV remains in jb4 place. Administered Medications: 20:35 Drug: TORadol - Ketorolac IVP 15 mg IVP once Route: IVP; Site: left antecubital; jb4 20:35 Drug: Ondansetron IVP 4 mg IVP once; over 2 minutes Route: IVP; Site: left antecubital; jb4 20:35 Drug: morphine IVP or IV 4 mg IVP once over 4 mins Route: IVP; Infused Over: 4 mins; jb4 Site: left antecubital; Outcome: 22:00 Decision to Hospitalize by Provider. ecYamileth 23:29 Admitted to Med/surg accompanied by nurse, via wheelchair, room 206, with chart, Report jb4 called to YOON Iglesias 23:29 Condition: stable 23:29 Discharge instructions given to patient, Instructed on the need for admit, Demonstrated understanding of instructions, 23:55 Patient left the ED. jb4 Signatures: Dispatcher [employer] EDMS Jennifer Zavala, Reg Reg mr Rancho Aldana, RN RN jb4 Saturnino Banuelos MD MD ec2 Lise Sue RN RN tm6
--- NOTE | 2024-06-05 22:00 | EDPHYS ---
Physician Documentation [facility] Name: Richard Calles Age: 39 yrs Sex: Male : 1985 Arrival Date: 06/05/2024 Time: 19:39 Bed 17 Private MD: ED Physician Saturnino Banuelos HPI: 06/05 20:15 This 39 yrs old Black Male presents to ER via Ambulatory with complaints of Abdominal ec2 Pain. 20:15 Patient arrives today for evaluation of upper abdominal pain. Patient reports that he ec2 was previously diagnosed with gallstones. Patient reports some associated abdominal pain and nausea. Patient reports pain persisting today which were prompted evaluation today he has met with Dr. Alamo as outpatient and told to come to the ED to be further evaluated.. Historical: - Allergies: 19:56 No Known Allergies; tm6 - PMHx: 19:56 Kidney stones; Migraine; tm6 - PSHx: 19:56 Appendectomy; right wrist; Vasectomy; tm6 - Immunization history:: Client reports receiving the 2nd dose of the Covid vaccine. - Infectious Disease History:: Denies. - Social history:: Smoking status: Patient denies any tobacco usage or history of. Patient uses alcohol, occasionally. ROS: 20:15 Constitutional: as per hpi ec2 Exam: 20:15 Constitutional: GEN: NAD Head: atraumatic Eyes: EOMI Ears: External ears are ec2 normal. CV: regular rate LUNGS: no respiratory distress ABD: non-distended, soft, tender in the epigastrium, not guarding, not rigid SKIN: no evidence of rashes MSK: no evidence of trauma Vital Signs: 19:53 Pulse 66; Resp 18; Temp 99(O); Pulse Ox 100% ; Weight 86.18 kg; Height 5 ft. 10 in. ; tm6 Pain 9/10; 19:54 BP 140 / 94; MAP 106 mmHg; tm6 21:00 BP 125 / 91; Pulse 68; Resp 16; Pulse Ox 97% on R/A; jb4 22:00 BP 128 / 83; Pulse 69; Resp 16; Pulse Ox 98% on R/A; jb4 23:00 BP 119 / 84; Pulse 61; Resp 16; Pulse Ox 97% on R/A; jb4 19:53 Body Mass Index 27.26 (86.18 kg, 177.8 cm) tm6 19:53 Pain Scale: Adult tm6 MDM: 20:03 Medical Screening Exam initiated ec2 20:15 Data reviewed: vital signs. ED course: Patient arrives today for upper abdominal pain. ec2 Examination remarkable for abdominal findings as above. Will obtain lab work, ultrasound, treat the patient's pain. Differential includes gastritis, cholecystitis, cholelithiasis.. 20:25 ED course: I discussed the case with Dr. Jose who recommends admission to the [facility] and will evaluate him in the a.m. and likely go to the OR.. 21:35 ED course: Ultrasound shows cholelithiasis without infection.. ec2 21:59 ED course: Metabolic profile and lipase are nonactionable. Will admit for further [facility] evaluation with general surgery. Discussed with hospitalist who agrees except this patient for admission. Patient updated regarding plan of care. 06/05 20:10 Order name: CBC with Diff; Complete Time: 20:59 ec2 06/05 20:10 Order name: CMP; Complete Time: 21:59 ec2 06/05 20:10 Order name: Lipase; Complete Time: 21:59 ec2 06/05 22:09 Order name: Lactate w/ 2H reflex if indic. EDMS 06/05 22:09 Order name: Magnesium EDOR 06/05 22:09 Order name: Phosphorus EDOR 06/05 22:09 Order name: Urinalysis w/ reflexes EDOR 06/05 22:09 Order name: Basic Metabolic Panel EDOR 06/05 22:09 Order name: Basic Metabolic Panel EDOR 06/05 22:09 Order name: CBC with Automated Diff EDOR 06/05 22:09 Order name: CBC with Automated Diff EDOR 06/05 20:10 Order name: Abdomen Limited US; Complete Time: 21:35 ec2 06/05 22:09 Order name: CONS Physician Consult EDOR 06/05 20:10 Order name: IV Saline Lock; Complete Time: 20:46 ec2 06/05 20:10 Order name: Labs collected and sent; Complete Time: 20:46 ec2 Administered Medications: 20:35 Drug: TORadol - Ketorolac IVP 15 mg IVP once Route: IVP; Site: left antecubital; jb4 20:35 Drug: Ondansetron IVP 4 mg IVP once; over 2 minutes Route: IVP; Site: left antecubital; jb4 20:35 Drug: morphine IVP or IV 4 mg IVP once over 4 mins Route: IVP; Infused Over: 4 mins; jb4 Site: left antecubital; Disposition Summary: 06/05/24 22:00 Hospitalization Ordered Notes: Hospitalization Status: Inpatient Admission ec2 Provider: Prince Terrell ec2 Location: Telemetry/MedSurg (Inpatient) ec2 Condition: Stable ec2 Problem: an acute exacerbation ec2 Symptoms: have improved ec2 Bed/Room Type: Standard ec2 Room Assignment: 206(06/05/24 22:49) cg Diagnosis - Other cholelithiasis without obstruction ec2 Forms: - Medication Reconciliation Form ec2 - SBAR form ec2 - Leadership Thank You Letter ec2 Signatures: Dispatcher [employer] Melody Pierce, YOON RN cg Rancho Aldana RN RN jb4 Saturnino Banuelos MD MD ec2 Lise Sue RN RN tm6 Corrections: (The following items were deleted from the chart) 20:10 20:10 CBC+H.LAB.BRZ ordered. EDMS EDMS 20:10 20:10 COMPREHENSIVE METABOLIC PANEL+C.LAB.BRZ ordered. EDMS EDMS 20:10 20:10 LIPASE+C.LAB.BRZ ordered. EDMS EDMS 20:10 20:10 Abdomen Limited+US.RAD.BRZ ordered. EDMS EDMS 22:49 22:00 ec2 cg
[2024-06-05] MEDS ORDERED: ONDANSETRON 4 MG/2 ML VIAL IV PRN (22:04)
[2024-06-05] MEDS ORDERED: SODIUM CHLORIDE 0.9% 10ML INJ IV PRN (22:07)
--- NOTE | 2024-06-05 22:24 | P.HP ---
Certification for Inpatient Patient admitted to: Observation With expected LOS: <2 Midnights Practitioner: I am a practitioner with admitting privileges, knowledge of patient current condition, hospital course, and medical plan of care. Services: Services provided to patient in accordance with Admission requirements found in Title 42 Section 412.3 of the Code of Federal Regulations Patient History Date of Service: 06/05/24 Reason for admission: abdominal pain History of Present Illness: Patient is a 39-year-old -Turkmen male with no past medical history is being admitted for for acute cholelithiasis. He has been having intermittent abdominal pain for the past 2 weeks. He is describing an epigastric abdominal pain with some radiation to the right side. He has no fever. Denies nausea or vomiting. Workup in the ER revealed gallstones. General surgery has been consulted. There is a plan for cholecystectomy tomorrow. Allergies No Known Drug Allergies Allergy (Unverified 11/22/14 14:25) Unknown Physical Examination - Physical Exam General: In no apparent distress HEENT: Atraumatic, Normocephalic Respiratory: Clear to auscultation bilaterally, Normal air movement Cardiovascular: No edema, Normal pulses, Regular rate/rhythm, Normal S1 S2 Gastrointestinal: Soft and benign, Non-distended, Other (Epigastric tenderness), Tenderness Neurological: Normal speech - Studies Laboratory Data (last 24 hrs) 06/05/24 06/05/24 20:30 20:30 WBC 5.60 Hgb 13.5 L Hct 41.5 Plt Count 283 Sodium 139 Potassium 3.6 BUN 14 Creatinine 1.19 Glucose 146 H Total Bilirubin 0.3 AST 18 ALT 27 Alkaline Phosphatase 57 Lipase 59 Assessment and Plan - Problems (Diagnosis) (1) Cholelithiasis Current Visit: Yes Status: Acute - Plan Assessment This is a 39-year-old generally healthy male who is being admitted for cholecystectomy after he presented with abdominal pain. Workup revealed gallstones. General surgery has been consulted. Cholelithiasis Plan: Admit under observation N.p.o. after midnight Pain control and antiemetics General Surgery has been consulted for cholecystectomy Patient is full code - Advance Directives Does patient have a Living Will: No Does patient have a Durable POA for Healthcare: No
[2024-06-05] MEDS ORDERED: ACETAMINOPHEN 500 MG TAB ONE (23:33)
[2024-06-05] MEDS: ACETAMINOPHEN 500 MG TAB PO PRN (23:36)
[2024-06-05 23:58] LABS: Magnesium 2.2 mg/dL (1.6-2.4); Phosphorus 3.6 mg/dL (2.5-4.9)
[2024-06-06] MEDS: NA CHLORIDE 0.9% 1,000 ML IV SCH (00:18)
[2024-06-06] MEDS: PANTOPRAZOLE 40 MG INJ IVP SCH (00:19)
[2024-06-06 00:42] VITALS: BMI 27.2
[2024-06-06 04:42] LABS: Absolute Eosinophils 0.2 K/uL (0-0.5); Absolute Lymphocytes (CBC) 2.5 K/uL (0.7-4.9); Absolute Monocytes 0.5 K/uL (0.1-1.3); Absolute Neutrophil 2.4 K/uL (1.8-8.0); Basophils % 0.6 % (0-1.3); Eosinophils % 2.8 % (0-4.4); Hematocrit 40.8 % (39.6-49.0); Hemoglobin 13.5 g/dL (13.6-17.9); Lymphocytes % 44.9 % (15.3-44.8); MCH 29.1 pg (27.0-35.0); MCHC 33.1 g/dL (32.0-36.0); MCV 87.9 fL (80-100); MPV 8.8 fL (7.6-11.3); Monocytes % 8.7 % (3.3-12.3); Platelets 252 thou/uL (152-406); RBC Red Blood Cell Count 4.64 M/uL (4.33-5.43); Red Cell Distribution Width 13.3 % (12.1-15.2)
[2024-06-06 04:59] LABS: Anion Gap 6.2 mEq/L (5.0-15.0); Potassium 4.2 mEq/L (3.5-5.1)
[2024-06-06] MEDS: MORPHINE 4 MG/ML SYR IV PRN (08:09)
--- NOTE | 2024-06-06 09:30 | P.PN ---
Date of Service: 06/06/24 Subjective: reports intermittent RUQ pain for ~2 weeks prior to admission tentative plan for surgery today denies any nausea/vomiting afebrile ROS: 10 point ROS as noted above, otherwise negative Physical Exam: GEN: Alert, oriented, NAD HEENT: Normal conjunctiva, sclera anicteric, CV: Regular rate and rhythm, no edema Pulm: Nonlabored respirations on room air, clear bilaterally ABD: soft, RUQ tenderness, nondistended Neuro: Normal speech, normal affect Problem List: Acute cholelithiasis Hx Nephrolithiasis On admission, presents with worsening intermittent RUQ abdominal pain for ~2 weeks. Denies any nausea/vomiting abdominal u/s (06/05): Cholelithiasis. Small echogenis calculi near the fundus, largest measuring [address] Jose, general surgeon consulted NPO for tentative lap johnson this afternoon continue IV fluids while NPO Pain control Protonix BID Code: Full Dispo: Home, later today vs tomorrow Pending timing on surgery / recovery Time Spent Managing Pts Care (In Minutes): 39
[2024-06-06] MEDS ORDERED: ROCURONIUM 50 MG/5 ML VIAL IV ONE (13:17)
[2024-06-06] MEDS ORDERED: propofoL 200 MG/20 ML VIAL IV ONE (13:17)
[2024-06-06] MEDS ORDERED: FENTANYL CITR 100 MCG/2 ML ONE ×2 (13:17→14:03)
[2024-06-06] MEDS ORDERED: MIDAZOLAM HCL 2 MG/2 ML INJ ONE (13:17)
[2024-06-06] MEDS ORDERED: LIDOCAINE 2% MPF 5 ML VIAL ONE (13:17)
[2024-06-06] MEDS ORDERED: ONDANSETRON 4 MG/2 ML VIAL ONE (13:17)
[2024-06-06] MEDS: CEFAZOLIN SODIUM 1 GM/VIAL ONE (13:34)
[2024-06-06] MEDS: SUGAMMADEX SODIUM 200 MG/2 ML VIAL IV ONE (13:35)
[2024-06-06] MEDS: SUCCINYLCHOLINE 20 MG/ML (10 ML) IV ONE (13:36)
[2024-06-06] MEDS ORDERED: dexAMETHasone 10 MG/ML VIAL ONE (13:52)
[2024-06-06] MEDS: CEFAZOLIN SODIUM 1 GM/VIAL IVP ONE (13:53)
[2024-06-06] MEDS ORDERED: KETOROLAC 30 MG/ML INJ ONE (13:59)
[2024-06-06] MEDS ORDERED: HYDROCODONE/APAP 5/325 MG TAB PO PRN (14:37)
[2024-06-06] MEDS: HYDROMORPHONE HCL 1 MG/ML INJ ONE ×2 (15:09→15:27)
[2024-06-06 15:57] VITALS: O2SAT 99
[2024-06-06 17:21] VITALS: BP 140/85; TEMP 97.8
--- NOTE | 2024-06-06 17:43 | P.DS ---
Admission Date: 06/05/24 Discharge Date: 06/07/24 Disposition: ROUTINE DISCHARGE Discharge Condition: GOOD Reason for Admission: abdominal pain Consultations: General surgery - Dr. Jose Brief History of Present Illness: 39yo F, PMH: none Patient being admitted for for acute cholelithiasis. He has been having intermittent abdominal pain for the past 2 weeks. He is describing an epigastric abdominal pain with some radiation to the right side. He has no fever. Denies nausea or vomiting. Workup in the ER revealed gallstones. General surgery has been consulted. There is a plan for cholecystectomy tomorrow. Hospital Course: Problem List: Acute cholelithiasis, now s/p lap johnson (06/06) Hx Nephrolithiasis Physician discharge instructions: Patient presented with intermittent RUQ abdominal pain for ~2 weeks secondary to acute cholelithiasis. Abdominal ultrasound revealed small echogenic calculi near the fundus, largest measuring 12mm. No evidence of extrahepatic biliary dilatation or pericholecystic fluid. Patient was evaluated by Dr. Jose, general surgeon, and underwent laparoscopic cholecystectomy on 06/06. No evidence of any active infection. Patient did well post operatively, pain improving, afebrile without leukocytosis, and was deemed stable for discharge. Follow up with Dr. Jose in office in ~1 week for further management. Avoid foods high in fat. Continue soft diet for next few days and slowly advance back to regular diet. Medications: pain medication, zofran, and augmentin called in by Dr. Jose Follow up: PCP 3-[address] Jose in ~1 week office [phone] Please call to schedule / confirm appointments No heavy lifting > 10 lbs for 4-6 weeks or otherwise instructed by Dr. Jose. Do not submerge wound underwater. Keep surgical area dry for 48h then may remove outer dressing and shower but keep sterile strips intact. Physical Exam: GEN: Alert, oriented, NAD HEENT: Normal conjunctiva, sclera anicteric, CV: Regular rate and rhythm, no edema Pulm: Nonlabored respirations on room air, clear bilaterally ABD: soft, nontender, surgical dressing in place Neuro: Normal speech, normal affect Vital Signs/Physical Exam: Temp Pulse Resp BP Pulse Ox 97.8 F 84 20 140/85 98 06/06/24 16:00 06/06/24 16:00 06/06/24 16:00 06/06/24 16:00 06/06/24 16:00 Laboratory Data at Discharge: WBC 5.50 thou/uL (4.3-10.9) 06/06/24 04:17 Hgb 13.5 g/dL (13.6-17.9) L 06/06/24 04:17 Hct 40.8 % (39.6-49.0) 06/06/24 04:17 Plt Count 252 thou/uL (152-406) 06/06/24 04:17 Sodium 140 mEq/L (136-145) 06/06/24 04:17 Potassium 4.2 mEq/L (3.5-5.1) D 06/06/24 04:17 BUN 15 mg/dL (7-18) 06/06/24 04:17 Creatinine 1.17 mg/dL (0.70-1.30) 06/06/24 04:17 Glucose 97 mg/dL (74-106) 06/06/24 04:17 Phosphorus 3.6 mg/dL (2.5-4.9) 06/05/24 23:21 Magnesium 2.2 mg/dL (1.6-2.4) 06/05/24 23:21 Total Bilirubin 0.3 mg/dL (0.2-1.0) 06/05/24 20:30 AST 18 U/L (15-37) 06/05/24 20:30 ALT 27 U/L (16-61) 06/05/24 20:30 Alkaline Phosphatase 57 U/L (45-117) 06/05/24 20:30 Lipase 59 U/L (13-75) 06/05/24 20:30 Home Medications: NK [No Home Meds] 06/06/24 Physician Discharge Instructions: Physician discharge instructions: Patient presented with intermittent RUQ abdominal pain for ~2 weeks secondary to acute cholelithiasis. Abdominal ultrasound revealed small echogenic calculi near the fundus, largest measuring 12mm. No evidence of extrahepatic biliary dilatation or pericholecystic fluid. Patient was evaluated by Dr. Jose, general surgeon, and underwent laparoscopic cholecystectomy on 06/06. No evidence of any active infection. Patient did well post operatively, pain improving, afebrile without leukocytosis, and was deemed stable for discharge. Follow up with Dr. Jose in office in ~1 week for further management. Avoid foods high in fat. Continue soft diet for next few days and slowly advance back to regular diet. Medications: pain medication, zofran, and augmentin called in by Dr. Jose Follow up: PCP 3-[address] Jose in ~1 week office [phone] Please call to schedule / confirm appointments No heavy lifting > 10 lbs for 4-6 weeks or otherwise instructed by Dr. Jose. Do not submerge wound underwater. Okay to shower with running water. Keep surgical area dry for 48h then may remove outer dressing and shower but keep sterile strips intact. Diet: Regular Activity: No lifting more than 10 lbs Followup: Royal Jose MD [ACTIVE - CAN ADMIT] - 1 Week NONE,NONE [Primary Care Provider] - Time spent managing pt's care (in minutes): 45
--- NOTE | 2024-06-23 12:26 | P.BOP ---
Preoperative diagnosis: Acute cholecystitis, symptomatic cholelithiasis Postoperative diagnosis: same, plus umbilical hernia Primary procedure: 1. Laparoscopic cholecystectomy Secondary procedure: 2. Umbilical hernia repair Estimated blood loss: <10cc Specimen: gb Findings: as above Anesthesia: General Complications: None Transferred to: Recovery Room Condition: Good
--- NOTE | 2024-06-23 17:33 | CON ---
Date of Consultation: 06/05/2024 Reason For Consultation: Epigastric right upper quadrant pain, acute cholecystitis, and symptomatic cholelithiasis. History Of Present Illness: This is the case of a 39-year-old patient who comes to us, admitted with epigastric right upper quadrant pain radiating to the back, associated with nausea. The pain was in tractable. It has been on and off for the last 2 weeks, with the last night just gotten worse. He d ecided to come to the ER. General Surgery was consulted. He denies any dysuria, hematuria, hematoch ezia, melena. Denies any recent traveling out of the country. Denies any family member sick at home . Review of Systems: Nausea and abdominal pain. No fever. No shortness of breath. No chest pain. See HPI. Allergies: NONE. Medical History: Kidney stones and migraines. Surgical History: Appendectomy, vasectomy, wrist surgery. Family History: Noncontributory. Physical Examination: Vital Signs: Reviewed. General: The patient is awake and alert. HEENT: Pupils are equal and reactive. Anicteric. Neck: Supple. Chest: Clear. Abdomen: Epigastric right upper quadrant pain with Mckeon sign positive. Genitalia: Deferred. Rectal: Deferred. Breast: Deferred. Extremities: Good capillary refill. Imaging: Ultrasound of the abdomen interpreted by Dr. Pagan as cholelithiasis. Laboratory Data: Blood work shows WBC count of 5.6, hemoglobin of 13.5. Chloride 108, glucose 146. Assessment: This is a 39-year-old patient with acute cholecystitis, symptomatic cholelithiasis. We offered him different options, one of them include surgical option, laparoscopic versus open johnson cystectomy with benefits, alternatives, and risks including, but not limited to infection, bleeding, damage to adjacent structures, anesthesia complication, choledocholithiasis, bile leak, pancreatitis, [place], and . He also understands this may not relieve the symptoms. He might need more than one surgical intervention. He understood. He is going to talk to his family and he is inclined to have the surgery done during this admission since he is not improving. HM/MODL Voice ID: [id number] Report ID: [id number]
--- NOTE | 2024-06-24 00:22 | OP ---
Date of Procedure: 06/06/2024 Surgeon: Royal Jose MD Preoperative Diagnoses: Acute cholecystitis, symptomatic cholelithiasis. Postoperative Diagnoses: Acute cholecystitis, symptomatic cholelithiasis, umbilical hernia. Procedures: 1.Laparoscopic cholecystectomy. 2.Umbilical hernia repair. Estimated Blood Loss: Less than 10 cc. Specimen: Gallbladder. Findings: The patient has above diagnosis plus umbilical hernia. Anesthesia: General plus local. Complications: None, Indication: This is a case of a 39-year-old patient who comes to us with above diagnoses. Fully exp lained the benefit, alternatives, and risks of laparoscopic possible open cholecystectomy, which incl ude, but not limited to infection, bleeding, damage to adjacent structures, anesthesia complication, choledocholithiasis, bile leak, pancreatitis, AR, and . He also understands this may not reliev e his symptoms. He might need more than one surgical intervention. He understood, signed a consent. Description Of Procedure: The patient was brought to the operating room, placed in supine position. Anesthesia was without complication. Abdominal area was prepped and draped in sterile fashion. A t jade-out was called. Marcaine 0.5% was injected for local anesthetic followed by sharp incision of th e skin in the periumbilical region. We noticed a hernia present. We have to remove the hernia sac a way from the skin. We opened the hernia sac, cleaned the fascial edges, and reduced the hernia. At that moment, I proceeded to place Vicryl #1 inside of the fascia. Justin trocar was carefully introd uced. Pneumoperitoneum was obtained. After that, I placed 3 more trocars under direct visualization , 1 in the epigastric area, 2 in the right upper quadrant under direct visualization. This allowed m e to put a grasper in the fundus of the gallbladder, another grasper in the infundibulum, retracting the gallbladder in the inferolateral fashion exposing the triangle of Calot and obtaining critical vi ew. The cystic duct and cystic artery were clearly isolated, freed circumferentially, and a connecti on between those and the gallbladder were clearly identified. I proceeded to ligate those by using a t least 3 clips proximal, 1 clip distal, ligation in the middle. Same was done with the cystic arter y. No bile leak. No bleeding. The gallbladder was removed from liver using Bovie cauterizer and re moved from abdominal cavity using EndoCatch through the umbilical incision. The area was inspected o nce again. No bile leak. No bleeding. At that moment, I proceeded to remove the trocars under dire ct vision. Deflated the pneumoperitoneum. Closed the fascia and umbilical hernia with #1 Vicryl, ir rigated subcutaneous tissue, closed with 3-0 chromic and skin was approximated. Sponge count and ins trument counts were correct. The patient tolerated the procedure well. The patient was sent to [facility] in stable condition. LAZ/MODL Voice ID: [id number] Report ID: [id number]
== END 2024-06-06 18:54 | disposition home or self-care (01) ==
LOC: ER 19:39 → ERHOLD 22:04 → 2ND 23:18
PROVIDERS: ADMIT Internal Medicine; ATTEND Hospitalist
PROC: 0FT44ZZ Resection of Gallbladder, Percutaneous Endoscopic Approach (ICD-10-PCS; principal; 2024-06-06 13:42)
DX: K80.10 Calculus of gallbladder with chronic cholecystitis without obstruction (principal)
CPT/HCPCS: 47562; 85025 ×2; 80048; 36415 ×2; 83735; 84100; 83605; 88302; 88304; 83690; 80053; 76705; 96375; 96374; 99285; J2704; J2003; J2470 ×2; J2250; J3010 ×2; J1100; J1171 ×2; J2405 ×2; G0378 ×4; J7030 ×2; J0690 ×2